=== PATIENT | female | born 1985 | race Caucasian/White ===

== ENCOUNTER 2018-04-05 14:14 | Emergency (ER) | payer OTHER ==
[2018-04-05 15:03] VITALS: BP 106/67
--- NOTE | 2018-04-05 15:31 | UC ---
Throat Pain/Nasal Edward HPI - HPI Summary HPI Summary: 33-year-old woman comes in with a chief complaint of runny nose sore throat going on for a little more than a week. Rhinorrhea is yellow. She's tried quite a few different [id number] medications without any improvement. No headache no ear pain no cough or chest congestion. - History of Current Complaint Chief Complaint: UCGeneralIllness Stated Complaint: SINUSES,HEADACHE,SORE THROAT,EARS Time Seen by Provider: 04/05/18 15:14 Hx Last Menstrual Period: 04/04/18 Pain Intensity: 0 - Allergies/Home Medications Allergies/Adverse Reactions: Allergies Allergy/AdvReac Type Severity Reaction Status Date / Time Sulfa (Sulfonamide Allergy Unknown as a child Verified 04/05/18 15:03 Antibiotics) PMH/Surg Hx/FS Hx/Imm Hx Previously Healthy: Yes - Surgical History Surgical History: None - Family History Known Family History: Positive: Non-Contributory - Social History Alcohol Use: Occasionally Substance Use Type: None Smoking Status (MU): Heavy Every Day Tobacco Smoker Type: Cigarettes Amount Used/How Often: 1/2 pack day Length of Time of Smoking/Using Tobacco: 14 YRS Review of Systems All Other Systems Reviewed And Are Negative: Yes Constitutional: Positive: Negative Skin: Positive: Negative Eyes: Positive: Negative ENT: Positive: Sore Throat, Nasal Discharge, Sinus Congestion, Sinus Pain/ Tenderness Respiratory: Positive: Negative Cardiovascular: Positive: Negative Gastrointestinal: Positive: Negative Motor: Positive: Negative Neurovascular: Positive: Negative Musculoskeletal: Positive: Negative Neurological: Positive: Negative Psychological: Positive: Negative Is Patient Immunocompromised?: No Physical Exam Triage Information Reviewed: Yes Appearance: No Pain Distress, Well-Nourished, Ill-Appearing - mild Vital Signs: Initial Vital Signs Temp 97.7 F 04/05/18 15:00 Pulse 81 04/05/18 15:00 Resp 16 04/05/18 15:00 BP 106/67 04/05/18 15:00 Pulse Ox 100 04/05/18 15:00 Vital Signs Reviewed: Yes Eye Exam: Normal Eyes: Positive: Conjunctiva Clear ENT: Positive: Pharyngeal erythema, Nasal congestion, Nasal drainage, TMs normal Neck exam: Normal Neck: Positive: Supple Respiratory: Positive: Lungs clear, Normal breath sounds, No respiratory distress Cardiovascular: Positive: RRR Musculoskeletal Exam: Normal Musculoskeletal: Positive: Strength Intact, ROM Intact Neurological Exam: Normal Neurological: Positive: Alert, Muscle Tone Normal Psychological Exam: Normal Psychological: Positive: Age Appropriate Behavior Skin Exam: Normal Throat Pain/Nasal Course/Dx - Course Course Of Treatment: DISCUSSED VIRAL VERSES BACTERIAL INFECTION AND THE ROLE OF ANTIBIOTICS. THE PATIENT WISHES TO BE ON ANTIBIOTIC AT THIS TIME. - Differential Dx/Diagnosis Provider Diagnosis: Sinusitis Discharge - Sign-Out/Discharge Documenting (check all that apply): Patient Departure All imaging exams completed and their final reports reviewed: No Studies - Discharge Plan Condition: Stable Disposition: HOME Prescriptions: Azithromyxin LO (NF) [Z-Lo (Zithromax) 250 mg tabs #6] 2 tab PO .TODAY, THEN 1 DAILY #6 tab Patient Education Materials: Sinusitis (ED) Referrals: Emanuel Stevenson MD [Primary Care Provider] - Additional Instructions: FOLLOW UP WITH YOUR DOCTOR IF NOT COMPLETELY IMPROVED. GET RECHECKED FOR ANY WORSENING OF YOUR CONDITION OR QUESTIONS OR CONCERNS. - Billing Disposition and Condition Condition: STABLE Disposition: Home
== END 2018-04-05 15:50 | disposition home or self-care (01) ==
LOC: UCCORT 14:14
DX: J32.9 Chronic sinusitis, unspecified (principal); Z88.1 Allergy status to other antibiotic agents; F17.210 Nicotine dependence, cigarettes, uncomplicated
CPT/HCPCS: 99212; G0463

== ENCOUNTER 2019-06-12 17:13 | Emergency (ER) | payer OTHER ==
--- NOTE | 2019-06-12 17:45 | UC ---
Complaint Female HPI - HPI Summary HPI Summary: 34 y/o F p/w L flank pain. Patient reports that she felt flushed and lightheaded on Wednesday at work, felt OK Wednesday during the day and again lightheaded on Wednesday PM. Today at work, had L sided flank pain. Reports urinary frequency, denies dysuria or hematuria. No vaginal bleeding or discharge. LMP 3 weeks ago. Hx ovarian cysts but feels different. No fam hx kidney stones. - History Of Current Complaint Stated Complaint: URINARY/BACK PAIN Time Seen by Provider: 06/12/19 17:18 Hx Obtained From: Patient Hx Last Menstrual Period: 04/04/18 Onset/Duration: Gradual Onset Timing: Intermittent Severity Initially: Moderate Radiates to: flank Character: Sharp, Cramping Aggravating Factor(s): Movement Alleviating Factor(s): Position Associated Signs And Symptoms: Negative: Vaginal Bleeding/Discharge, Vaginal Discharge, Nausea - Allergies/Home Medications Allergies/Adverse Reactions: Allergies Allergy/AdvReac Type Severity Reaction Status Date / Time Sulfa (Sulfonamide Allergy Unknown as a child Verified 06/12/19 17:34 Antibiotics) Home Medications: Home Medications Elderberry Fruit/Honey [Little Remedies Cough-Immune] 118 ml PO DAILY 06/12/19 [ History Confirmed 06/12/19] Fire Cider 1 dose PO DAILY 06/12/19 [History Confirmed 06/12/19] PMH/Surg Hx/FS Hx/Imm Hx Previously Healthy: Yes GI/ History: Other - ovarian cysts - Surgical History Surgical History: None - Family History Known Family History: Positive: Non-Contributory - Social History Alcohol Use: Occasionally Substance Use Type: None Smoking Status (MU): Heavy Every Day Tobacco Smoker Type: Cigarettes Amount Used/How Often: 1/2 pack day Length of Time of Smoking/Using Tobacco: 14 YRS Review of Systems All Other Systems Reviewed And Are Negative: Yes Constitutional: Positive: Fatigue Genitourinary: Positive: Frequency, Urgency. Negative: Dysuria, Hematuria, Vaginal/Penile Discharge, Vaginal/Penile Tenderness Musculoskeletal: Positive: Other: - flank pain Physical Exam - Summary Physical Exam Summary: Constitutional: Well-developed, Well-nourished, Alert. (-) Distressed Skin: Warm, Dry HENT: Normocephalic; Atraumatic Eyes: Conjunctiva normal Neck: Musculoskeletal ROM normal neck. (-) JVD, (-) Stridor Cardio: Rhythm regular, rate normal, Heart sounds normal; Intact distal pulses; Radial pulses are 2+ and symmetric. (-) Murmur Pulmonary/Chest wall: Effort normal. (-) Respiratory distress, (-) Wheezes, (-) Rales Abd: Soft, (-) tenderness, (-) Distension, (-) Guarding, (-) Rebound Musculoskeletal: L flank TTP Lymph: (-) Cervical adenopathy Neuro: Alert, Oriented x3 Psych: Mood and affect Normal Diagnostics - Radiology No standard instances Radiology Interpretation Completed By: Radiologist Summary of Radiographic Findings: CT a/p: 1. No obstructive uropathy. There is the nonobstructing 6 mm calculus in the lower pole of right kidney. 2. Small follicular cyst one on each side. There is also a mild free fluid in the cul-de- sac which could represent a recently ruptured cyst. Re-Evaluation - Re-Evaluation First Eval Re-Evaluation Time: 19:15 Change: Improved - d/w patient CT results. Advised to return for further Complaint Female Dx - Course Course Of Treatment: 34 y/o F p/w L flank tenderness, urinary frequency and L flank pain. UA w only trace LE, defer txt given lack of urinary symptoms aside from frequency. CT a/p obtained shows R renal stone, ovarian cysts. Pain likely MSK as no sign of L sided stone, no significant LE or bacteria to suggest pyelo. CBC and BMP sent. - Differential Dx/Diagnosis Provider Diagnosis: Flank pain, Kidney stone, Ovarian cyst Discharge ED - Sign-Out/Discharge Documenting (check all that apply): Patient Departure All imaging exams completed and their final reports reviewed: Yes - Discharge Plan Condition: Stable Disposition: HOME Patient Education Materials: Flank Pain (ED) Referrals: Emanuel Stevenson MD [Primary Care Provider] - Additional Instructions: You were seen at urgent care for left sided flank pain. Your CT scan showed a right-sided kidney stone as well as bilateral ovarian cysts. Did not show a cause for her pain. please take Motrin or Tylenol for pain. If any lab work or imaging was not completed at the time of discharge, you will be called with any relevant results. Please seek medical attention or go to the emergency department for any worsening pain, fevers, or concerning symptoms. Please follow up with your primary care doctor in 2-3 days. It was a pleasure taking care of you today. - Billing Disposition and Condition Condition: STABLE Disposition: Home
[2019-06-12 17:47] VITALS: BP 111/66
[2019-06-13 13:37] LABS: Hematocrit 37 % (35-47); Hemoglobin 12.4 g/dL (12.0-16.0); Mean Corpuscular HGB Conc 33 g/dL (31-36); Mean Corpuscular Hemoglobin 29 pg (27-31); Mean Corpuscular Volume 87 fL (80-97); Mean Platelet Volume 10.3 fL (7.4-10.4); Platelet Count 247 10^3/uL (150-450); Red Blood Count 4.29 10^6 /uL (3.70-4.87); Red Cell Distribution Width 14 % (10-15); White Blood Count 8.5 10^3/uL (3.5-10.8)
[2019-06-13 13:45] LABS: Calcium 9.4 mg/dL (8.6-10.3); Potassium 3.7 mmol/L (3.5-5.0)
[2019-06-13 13:50] LABS: BUN/Creatinine Ratio 22.8 (8-20); EGFR African American 145.2 (>60)
[2019-06-13 14:51] LABS: ABS Basophils 0.1 10^3/ul (0-0.2); ABS Eosinophils 0.2 10^3/ul (0-0.6); ABS Lymphocytes 2.3 10^3/ul (1.0-4.8); ABS Monocytes 0.7 10^3/ul (0-0.8); ABS Neutrophils 5.3 10^3/ul (1.5-7.7); Eosinophil % 1.9 %; Lymphocyte % 26.9 %; Nucleated Red Blood Cells % 0.3
== END 2019-06-12 19:27 | disposition home or self-care (01) ==
LOC: UCCORT 17:13
DX: N20.0 Calculus of kidney (principal); N83.202 Unspecified ovarian cyst, left side; N83.201 Unspecified ovarian cyst, right side; R10.9 Unspecified abdominal pain; F17.210 Nicotine dependence, cigarettes, uncomplicated; Z88.2 Allergy status to sulfonamides
CPT/HCPCS: 36415; 74176; 80048; 81003; 84702; 85025; 87086; 99211; G0463